=== PATIENT | male | born 1980 | race Caucasian/White ===

== ENCOUNTER → 2021-01-01 | Day surgery (SDC) | payer OTHER ==
[~2021-01-01] MED LIST: PEPCID AC20 MG PO
[2021-01-01 08:13] LABS: HCT 53.3 % (42.0-52.0); HGB 17.8 g/dl (13.2-18.0); MCH 30.2 pg (25.0-31.0); MCHC 33.4 g/dL (32.0-36.0); MCV 90.3 fL (78.0-100.0); MPV 10.6 fL (6.0-9.5); RBC 5.9 M/uL (4.70-6.00); WBC 11.4 K/uL (4.0-10.5)
[2021-01-01 08:23] LABS: ALBUMIN 4.3 g/dL (3.4-5.0); BILIRUBIN - TOTAL 0.6 mg/dL (0.2-1.0); CREATININE 1.31 mg/dL (0.67-1.17); GLOBULIN (CALCULATION) 3.9 g/dL; POTASSIUM 3.4 mmol/L (3.5-5.1); TOTAL PROTEIN 8.2 g/dL (6.4-8.2)
== END | disposition home or self-care (01) ==
LOC: FAS 07:40
PROVIDERS: Surgery
DX: K63.5 Polyp of colon (principal); K64.0 First degree hemorrhoids; K21.9 Gastro-esophageal reflux disease without esophagitis; G47.30 Sleep apnea, unspecified; J30.9 Allergic rhinitis, unspecified; M54.5 Low back pain; Z20.822 Contact with and (suspected) exposure to COVID-19
CPT/HCPCS: 36415; 80053; J2250; J2704; J7120; U0002